=== PATIENT | female | born 1995 | race Caucasian/White ===

== ENCOUNTER 2018-11-06 09:20 | Inpatient (IN) | payer MEDICARE, MEDICAID ==
[~2018-11-06 09:20] MED LIST: ACET325T14 PO; ALPR-475 PO; ALPR1TAB2 PO; AZAT50TA20 PO; CALC667C PO; CEFD300C37 PO; ERGO500017 PO; METO25TA35 PO; METR500T PO; PANT40TA3 PO; PRED20TA PO
[2018-11-06 11:40] VITALS: BP 141/88
[2018-11-06 13:15] VITALS: BP 144/97
[2018-11-06] MEDS ORDERED: MYCO500V5 PO (13:50)
[2018-11-06] MEDS ORDERED: CARV12.5 PO (13:50)
[2018-11-06] MEDS ORDERED: PRED5TAB PO (13:50)
[2018-11-06] MEDS ORDERED: TACR1CAP2 PO (13:50)
[2018-11-06] MEDS ORDERED: MYCO500T PO (13:50)
[2018-11-06] MEDS ORDERED: ACETAMINOPHEN 325 MG TABLET PO PRN (14:00)
[2018-11-06] MEDS ORDERED: hydrALAzine 20 MG/ML, 1ML IVPush PRN (14:00)
[2018-11-06] MEDS ORDERED: BACLOFEN 10 MG TABLET PO PRN (14:00)
[2018-11-06] MEDS ORDERED: ONDANSETRON 2MG/ML, 2ML IVPush PRN (14:00)
[2018-11-06] MEDS ORDERED: OXYcodone IR 5MG TABLET PO PRN (14:00)
[2018-11-06] MEDS ORDERED: morphine SULFATE 10 MG/ML, 1ML IVPush PRN (14:00)
[2018-11-06] MEDS ORDERED: CEPH-368 PO (15:19)
[2018-11-06] MEDS ORDERED: HEPARIN 5,000 UNITS/ML, 1ML SQ SCH (19:00)
== END 2018-11-06 15:20 | disposition home or self-care (01) | DRG 690 ==
LOC: 4NOR 11:24
PROVIDERS: ADMIT Hospitalist; ATTEND Hospitalist
DX: N13.6 Pyonephrosis (principal); Z94.0 Kidney transplant status; M31.30 Wegener's granulomatosis without renal involvement; I12.0 Hypertensive chronic kidney disease with stage 5 chronic kidney disease or end stage renal disease; N18.6 End stage renal disease; Z79.52 Long term (current) use of systemic steroids; Z88.1 Allergy status to other antibiotic agents; Z83.3 Family history of diabetes mellitus
CPT/HCPCS: 87086; G0378

== ENCOUNTER 2020-04-08 13:03 | Day surgery (SDC) | payer MEDICARE, OTHER, MEDICAID ==
[~2020-04-08] VITALS: Ht 167.6 cm; Wt 115.9 kg
[~2020-04-08 13:03] MED LIST changes: -ALPR-475 PO; +ALPR0.5T7 PO; +AZAT50TA9 PO; +CARV-39 PO; +CARV12.5 PO; +CEPH-368 PO; +CLON-364 PO; +MYCO500T PO; +MYCO500V5 PO; +OMEP-110 PO; +PRED5TAB PO; +TACR1CAP2 PO
[2020-04-08] MEDS ORDERED: CHLORHEXIDINE 15 ML UDC ONE (14:22)
[2020-04-08] MEDS ORDERED: BUPIVACAINE/PF-EPI 0.5% 1:200K ONE (14:23)
[2020-04-08] MEDS ORDERED: LACTATED RINGERS 1,000 ML IV SCH (15:00)
[2020-04-08] MEDS ORDERED: CEFAZOLIN 1,000 MG ONE (15:07)
[2020-04-08] MEDS ORDERED: PROPOFOL 10 MG/ML, 20ML ONE (15:07)
[2020-04-08] MEDS ORDERED: FENTANYL PF 100 MCG/2ML ONE ×5 (15:07→16:14)
[2020-04-08] MEDS ORDERED: MIDAZOLAM 1 MG/ML, 2ML ONE (15:07)
[2020-04-08] MEDS ORDERED: DEXAMETHASONE 4 MG/ML, 1ML ONE (15:07)
[2020-04-08] MEDS ORDERED: ONDANSETRON 2MG/ML, 2ML ONE (15:07)
[2020-04-08] MEDS ORDERED: BUPIVACAINE/PF 0.5% ONE (15:18)
[2020-04-08 15:23] LABS: HCG UR SG 1.015 (1.003-1.030)
[2020-04-08] MEDS ORDERED: ACETAMINOPHEN 325 MG TABLET PO PRN (15:30)
[2020-04-08] MEDS ORDERED: MIDAZOLAM 1 MG/ML, 2ML IV PRN (15:30)
[2020-04-08] MEDS ORDERED: DIPHENHYDRAMINE 50 MG/ML, 1ML IVPush PRN (15:30)
[2020-04-08] MEDS ORDERED: LABETALOL 5MG/ML, 20ML IV PRN (15:30)
[2020-04-08] MEDS ORDERED: DIAZEPAM 5 MG/ML, 2ML IVPush PRN (15:30)
[2020-04-08] MEDS ORDERED: EPHEDRINE 50 MG/ML, 1ML IVPush PRN (15:30)
[2020-04-08] MEDS ORDERED: PROMETHAZINE 25 MG/ML, 1ML IVPush PRN (15:30)
[2020-04-08] MEDS ORDERED: hydrALAzine 20 MG/ML, 1ML IV PRN (15:30)
[2020-04-08] MEDS ORDERED: ALBUTEROL SULFATE 2.5 MG/3 ML NPPB PRN (15:30)
[2020-04-08] MEDS ORDERED: MEPERIDINE/PF 25MG/0.5ML IVPush PRN (15:30)
[2020-04-08] MEDS ORDERED: OXYcodone 5 MG/5 ML ORAL.SOL UDC PO PRN (15:30)
[2020-04-08] MEDS ORDERED: PROMETHAZINE 12.5 MG SUPP PR PRN (15:30)
[2020-04-08] MEDS ORDERED: ONDANSETRON 2MG/ML, 2ML IVPush PRN (15:30)
[2020-04-08] MEDS ORDERED: OXYcodone 5 MG/5 ML ORAL.SOL UDC ONE (16:14)
[2020-04-08] MEDS: FENTANYL PF 100 MCG/2ML IV PRN ×2 (16:19→16:27)
[2020-04-08] MEDS ORDERED: HYDROmorphone 1 MG/ML, 1ML INJ ONE (16:29)
[2020-04-08] MEDS: HYDROmorphone 1 MG/ML, 1ML INJ IVPush PRN ×2 (16:39→16:46)
== END 2020-04-08 18:50 | disposition home or self-care (01) ==
LOC: OR 13:03
PROVIDERS: ATTEND Surgery
DX: Z49.02 Encounter for fitting and adjustment of peritoneal dialysis catheter (principal); I10 Essential (primary) hypertension; E66.9 Obesity, unspecified; Z79.899 Other long term (current) drug therapy; Z88.8 Allergy status to other drugs, medicaments and biological substances; Z94.0 Kidney transplant status
CPT/HCPCS: 35206; 37607; 81025; J0690; J1100; J1170; J2250; J2405; J2704; J3010; J7120